=== PATIENT | female | born 1975 | race Caucasian/White ===

== ENCOUNTER 2018-01-06 16:17 | Emergency (ER) | payer BC ==
[2018-01-06] MEDS: DIPHTH/TET/ACEL PERTUSS (ADULT) 0.5 ML VIAL IM* (17:52)
[2018-01-06] MEDS: AMOXICILLIN/CLAV 875 MG TAB PO (18:00)
== END 2018-01-06 18:47 | disposition home or self-care (01) ==
LOC: FTE 16:17
DX: S61.250A Open bite of right index finger without damage to nail, initial encounter (principal); S61.251A Open bite of left index finger without damage to nail, initial encounter; W55.01XA Bitten by cat, initial encounter; Y92.9 Unspecified place or not applicable
CPT/HCPCS: 90471; 90715; 99283-25